=== PATIENT | female | born 1975 | race African-American/Black ===

== ENCOUNTER 2017-06-04 13:57 | Inpatient (IN) | payer OTHER ==
[~2017-06-04] VITALS: Ht 167.6 cm; Wt 58.5 kg
[~2017-06-04 13:57] MED LIST: CEPH250C2 PO; HYDR2TAB4 PO; HYDR4TAB4 PO; MORP60TA6 PO; NIFE60TA35 PO; ONDA8TAB6 PO; POTA10TA15 PO
[2017-06-04] MEDS ORDERED: ONDANSETRON HCL 4MG/2ML VIAL IV STA (14:26)
[2017-06-04] MEDS ORDERED: SODIUM CHLORIDE 0.9% 1000ML BAG (SEPSIS BOLUS) IV ONE (14:30)
[2017-06-04] MEDS ORDERED: SEVE800T8 PO (14:31)
[2017-06-04] MEDS ORDERED: METR-112 PO (14:31)
[2017-06-04] MEDS ORDERED: FERR-63 PO (14:31)
[2017-06-04] MEDS ORDERED: PANT40TA4 PO (14:31)
[2017-06-04 14:59] LABS: GLUCOSE URINE NEGATIVE (NEGATIVE); KETONES URINE TRACE (NEGATIVE); LEUKOCYTE ESTERASE URINE 3+ (NEGATIVE); NITRITE URINE POSITIVE (NEGATIVE); OCCULT BLOOD URINE 3+ (NEGATIVE); PROTEIN URINE 3+ (NEGATIVE); SPECIFIC GRAVITY URINE 1.015 (1.005-1.030)
[2017-06-04 15:01] LABS: CLARITY URINE TURBID (CLEAR); COLOR URINE DARK YELLOW (YELLOW)
[2017-06-04 15:11] LABS: HEMATOCRIT. 23.8 % (36.0-48.0); HEMOGLOBIN. 7.6 g/dL (12.0-16.0); MEAN CORPUSCULAR HEMOGLOBIN 28.2 pg (28.0-32.0); MEAN CORPUSCULAR VOLUME 88.5 fL (81.0-99.0); MEAN PLATELET VOLUME 7.2 fl (7.4-10.4); PLATELET 503 x1000/uL (130-400); RED BLOOD CELL COUNT 2.69 mill/uL (4.2-5.4); RED CELL DISTRIBUTION WIDTH 16.2 % (11.6-14.6)
[2017-06-04] MEDS ORDERED: CEFTRIAXONE 1 G PREMIX 50 ML IV ONE (15:15)
[2017-06-04 15:16] LABS: CHLORIDE 105 mEq/L (98-107)
[2017-06-04 15:17] LABS: INR 1.3; PROTHROMBIN TIME 13.7 sec
[2017-06-04 15:24] LABS: CARBON DIOXIDE 15 mEq/L (21-32)
[2017-06-04 15:25] LABS: TROPONIN I < 0.02 ng/mL (0.00-0.04)
[2017-06-04] MEDS: FENTANYL CITRATE/PF 50MCG/ML 2ML VIAL IV ONE ×2 (15:46→16:06)
[2017-06-04 15:56] LABS: PLATELET ESTIMATE INCREASED
[2017-06-04] MEDS ORDERED: LEVOFLOXACIN 500MG PREMIX 100 ML IV ONE (16:00)
[2017-06-04 16:03] LABS: HCG SCREEN NEGATIVE
[2017-06-04] MEDS ORDERED: SODIUM BICARBONATE 5MEQ SYR 50 MEQ in DEXT 5%/0.45% NACL 1000ML 1,000 ML IV ONE (18:30)
[2017-06-04] MEDS ORDERED: ONDANSETRON HCL 4MG/2ML VIAL IV PRN (18:30)
[2017-06-04 20:00] VITALS: BP 110/70
[2017-06-04] MEDS ORDERED: PIPERACILLIN/TAZ 2.25G PREMIX 50 ML IV SCH (20:00)
[2017-06-04 20:25] LABS: BG BASE EXCESS -8.5 mmol/L (-2.0-2.0); BG CARBOXYHEMOGLOBIN 0.3 % (0.5-1.5); BG DEOXYHEMOGLOBIN 2.2 % (0.0-5.0); BG FRACTION INSPIRED OXYGEN 21; BG HCO3 ACT 16.5 mmol/L (22.0-26.0); BG METHEMOGLOBIN 0.3 % (0.0-1.5); BG OXYGEN SATURATION 97.8 % (92.0-98.5); BG OXYHEMOGLOBIN 97.2 % (94.0-97.0); BG PCO2 32.5 mmHg (35.0-45.0); BG PH 7.324 (7.350-7.450); BG PO2 111.6 mmHg (75.0-100.0); BG SAMPLE SITE LEFT BRACHIAL; BG TOTAL HEMOGLOBIN 11.1 g/dL (12.0-18.0); BG VENT MODE ROOM AIR
[2017-06-04] MEDS: HYDROMORPHONE HCL/PF 2MG/ML CPJ IV PRN (21:00)
[2017-06-04] MEDS ORDERED: VANCOMYCIN 1 G PREMIX 200 ML IV SCH (21:00)
[2017-06-04] MEDS: DEXT 5%/0.45% NACL 1000ML 1,000 ML IV SCH (21:11)
[2017-06-04 22:00] VITALS: BP 111/71
[2017-06-04] MEDS: SODIUM BICARBONATE 650 MG TABLET PO SCH (22:44)
[2017-06-04] MEDS: PIPERACILLIN/TAZ 2.25G PREMIX 50 ML IV SCH (22:44)
[2017-06-05] VITALS (16 sets, daily range): BP systolic 104–147; BP diastolic 46–82
[2017-06-05] MEDS: HYDROMORPHONE HCL/PF 2MG/ML CPJ IV PRN ×5 (01:22→20:40)
[2017-06-05] MEDS: SODIUM BICARBONATE 650 MG TABLET PO SCH ×2 (06:12→14:11)
[2017-06-05] MEDS: PIPERACILLIN/TAZ 2.25G PREMIX 50 ML IV SCH ×2 (06:12→14:10)
[2017-06-05 06:43] LABS: BASOPHILS % 0.1 % (0.0-2.0); EOSINOPHILS % 0.4 % (0.0-5.0); MEAN CORPUSCULAR HEMOGLOBIN 30.1 pg (28.0-32.0); MEAN CORPUSCULAR VOLUME 87.2 fL (81.0-99.0); MONOCYTES % 8.8 % (2.0-8.0); NEUTROPHILS % 82.7 % (40.0-76.0); PLATELET 248 x1000/uL (130-400); RED BLOOD CELL COUNT 3.32 mill/uL (4.2-5.4); RED CELL DISTRIBUTION WIDTH 14.6 % (11.6-14.6)
[2017-06-05 07:11] LABS: CARBON DIOXIDE 18 mEq/L (21-32); CHLORIDE 109 mEq/L (98-107); T4 FREE 1.17 ng/dL (0.76-1.46)
[2017-06-05] MEDS: DEXT 5%/0.45% NACL 1000ML 1,000 ML IV SCH ×2 (08:00→16:57)
[2017-06-05] MEDS ORDERED: PANTOPRAZOLE 40MG DR TABLET PO SCH (09:00)
[2017-06-05] MEDS: METRONIDAZOLE 500MG TABLET PO SCH ×2 (09:16→16:58)
[2017-06-05] MEDS ORDERED: VANCOMYCIN 1 G PREMIX 200 ML IV SCH (21:00)
== END 2017-06-05 21:05 | disposition short-term general hospital (02) | DRG 871 ==
LOC: ER 14:08 → 5EST 15:57 → EDBEDREQTM 15:59 → EDBEDREQSVC 15:59 → EDBEDREQ 15:59 → ENRESERV 16:02
PROVIDERS: ADMIT Internal Medicine; ATTEND Internal Medicine
PROC: 30243N1 Transfusion of Nonautologous Red Blood Cells into Central Vein, Percutaneous Approach (ICD-10-PCS; principal; 2017-06-04)
DX: A41.9 Sepsis, unspecified organism (principal); R65.21 Severe sepsis with septic shock; E87.2 Acidosis; K62.5 Hemorrhage of anus and rectum; D62 Acute posthemorrhagic anemia; Q60.0 Renal agenesis, unilateral; N93.9 Abnormal uterine and vaginal bleeding, unspecified; C53.9 Malignant neoplasm of cervix uteri, unspecified; I12.9 Hypertensive chronic kidney disease with stage 1 through stage 4 chronic kidney disease, or unspecified chronic kidney disease; N18.9 Chronic kidney disease, unspecified; Z85.528 Personal history of other malignant neoplasm of kidney; Z92.21 Personal history of antineoplastic chemotherapy; Z92.3 Personal history of irradiation; Z79.899 Other long term (current) drug therapy
CPT/HCPCS: 36415; 36600; 71010; 76830; 76856; 80053; 81001; 82375; 82805; 83605; 83880; 84439; 84443; 84484; 84703; 85025; 85044; 85610; 86850; 86900; 86920; 87040; 87086; 93005; 96365; 96367; 96375; 99291; J0696; J1170; J2405; J2543; J3010; J3370; J3490; J7030; J7050; P9016; A4315